=== PATIENT | female | born 1985 | race Caucasian/White ===

== ENCOUNTER 2017-10-13 19:37 | Emergency (ER) | payer MEDICAID ==
[~2017-10-13] VITALS: Ht 175.3 cm; Wt 182.2 kg
[2017-10-13] MEDS ORDERED: KETOROLAC 30MG/ML VIAL IM ONE (22:45)
[2017-10-13 23:55] LABS: CLARITY URINE CLEAR (CLEAR); COLOR URINE DARK YELLOW (YELLOW); KETONES URINE NEGATIVE (NEGATIVE); LEUKOCYTE ESTERASE URINE 1+ (NEGATIVE); NITRITE URINE POSITIVE (NEGATIVE); OCCULT BLOOD URINE 3+ (NEGATIVE); PROTEIN URINE 2+ (NEGATIVE)
[2017-10-14 00:41] VITALS: BP 160/96
== END 2017-10-14 00:58 | disposition home or self-care (01) ==
LOC: ER 19:37
DX: N39.0 Urinary tract infection, site not specified (principal); E11.9 Type 2 diabetes mellitus without complications; I10 Essential (primary) hypertension
CPT/HCPCS: 81003; 96372; 99283; J1885; Z7610

== ENCOUNTER 2021-01-10 16:33 | Emergency (ER) | payer MEDICAID ==
[~2021-01-10] VITALS: Ht 175.3 cm; Wt 170.0 kg
[2021-01-11] MEDS ORDERED: KETOROLAC 30MG/ML VIAL IV STA (00:10)
[2021-01-11] MEDS ORDERED: ONDANSETRON HCL 4MG/2ML INJ IV STA (00:10)
[2021-01-11] MEDS ORDERED: SODIUM CHLORIDE 0.9% 1,000 ML IV ONE (00:15)
[2021-01-11 00:41] LABS: CLARITY URINE CLOUDY (CLEAR); COLOR URINE YELLOW (YELLOW); KETONES URINE 1+ (NEGATIVE); LEUKOCYTE ESTERASE URINE 1+ (NEGATIVE); NITRITE URINE POSITIVE (NEGATIVE); OCCULT BLOOD URINE NEGATIVE (NEGATIVE); PH URINE 5.5 (4.5-8.0); PROTEIN URINE TRACE (NEGATIVE); SPECIFIC GRAVITY URINE 1.019 (1.005-1.030); UROBILINOGEN URINE 0.2 E.U./dL (0.2-1.0)
[2021-01-11 00:41] LABS: BASOPHILS % 0.5 % (0.0-2.0); EOSINOPHILS % 0.3 % (0.0-5.0); HEMATOCRIT. 44.2 % (36.0-48.0); HEMOGLOBIN. 14.9 g/dL (12.0-16.0); MEAN CORPUSCULAR HEMOGLOBIN 29.4 pg (28.0-32.0); MEAN CORPUSCULAR VOLUME 87.3 fL (81.0-99.0); MEAN PLATELET VOLUME 10.5 fl (7.4-10.4); NEUTROPHILS % 75.2 % (40.0-76.0); PLATELET 206 x1000/uL (130-400); RED BLOOD CELL COUNT 5.06 mill/uL (4.2-5.4); RED CELL DISTRIBUTION WIDTH 13.2 % (11.6-14.6)
[2021-01-11 00:43] LABS: CHLORIDE 100 mEq/L (98-107)
[2021-01-11] MEDS ORDERED: CEFTRIAXONE 1 G PREMIX 50 ML IV ONE (01:00)
[2021-01-11] MEDS ORDERED: IBUP-2029 MT (01:32)
[2021-01-11] MEDS ORDERED: CEPH500C2 MT ×2 (01:32)
[2021-01-11 02:44] VITALS: BP 142/91
[2021-01-27] MEDS ORDERED: LISI30TA36 MT (11:26)
[2021-01-27] MEDS ORDERED: HYDR25TA MT (11:26)
[2021-01-27] MEDS ORDERED: GLIP5TAB12 MT (11:26)
[2021-01-27] MEDS ORDERED: METF-414 MT (11:26)
== END 2021-01-11 02:45 | disposition home or self-care (01) ==
LOC: ER 16:33
DX: N10 Acute pyelonephritis (principal); E11.65 Type 2 diabetes mellitus with hyperglycemia; N39.0 Urinary tract infection, site not specified; I10 Essential (primary) hypertension; Z98.890 Other specified postprocedural states
CPT/HCPCS: 36415; 80053; 81003; 83690; 85025; 96361; 96365; 96375; 99284; J0696; J1885; J2405; J7030

== ENCOUNTER 2021-01-22 20:01 | Emergency (ER) | payer MEDICAID ==
[~2021-01-22] VITALS: Ht 175.3 cm; Wt 166.0 kg
[~2021-01-22 20:01] MED LIST: CEPH500C2 MT; IBUP-2029 MT
[2021-01-22 20:11] VITALS: BP 171/100
== END 2021-01-22 23:37 | disposition left against medical advice (07) ==
LOC: ER 20:01
DX: Z53.21 Procedure and treatment not carried out due to patient leaving prior to being seen by health care provider (principal)

== ENCOUNTER 2024-10-18 12:40 | Emergency (ER) | payer MEDICAID ==
[~2024-10-18] VITALS: Ht 175.3 cm; Wt 103.0 kg
[~2024-10-18 12:40] MED LIST changes: -CEPH500C2 MT; +GLIP5TAB22 MT; +HYDR25TA MT; +LISI30TA36 MT; +METF-414 MT
[2024-10-18 13:00] VITALS: O2SAT 100
[2024-10-18] MEDS: ONDANSETRON 4MG ODT PO ONE (13:40)
[2024-10-18 13:44] LABS: CLARITY URINE CLEAR (CLEAR); COLOR URINE YELLOW (YELLOW); GLUCOSE URINE NEGATIVE (NEGATIVE); KETONES URINE NEGATIVE (NEGATIVE); LEUKOCYTE ESTERASE URINE NEGATIVE (NEGATIVE); NITRITE URINE NEGATIVE (NEGATIVE); OCCULT BLOOD URINE NEGATIVE (NEGATIVE); PH URINE 6.0 (4.5-8.0); PROTEIN URINE NEGATIVE (NEGATIVE); SPECIFIC GRAVITY URINE 1.015 (1.005-1.030); UROBILINOGEN URINE 0.2 E.U./dL (0.2-1.0)
[2024-10-18 14:34] LABS: BASOPHILS % 0.3 % (0.0-2.0); EOSINOPHILS % 0.4 % (0.0-5.0); HEMATOCRIT. 43.8 % (36.0-48.0); HEMOGLOBIN. 14.9 g/dL (12.0-16.0); LYMPHOCYTES % 17.9 % (20.0-50.0); MEAN PLATELET VOLUME 10.4 fl (7.4-10.4); MONOCYTES % 5.1 % (2.0-8.0); NEUTROPHILS % 76.3 % (40.0-76.0); PLATELET 204 x1000/uL (130-400); RED BLOOD CELL COUNT 5.03 mill/uL (4.2-5.4); RED CELL DISTRIBUTION WIDTH 13.7 % (11.6-14.6)
[2024-10-18 14:47] LABS: CREATININE 0.6 mg/dL (0.6-1.0); UREA NITROGEN BLOOD 8 mg/dL (9-23)
[2024-10-18 14:49] LABS: ASPARTATE AMINOTRANSFERASE 18 IU/L (<34); BILIRUBIN DIRECT 0.5 mg/dL (<=3.0); BILIRUBIN TOTAL 1.9 mg/dL (0.1-1.0); PROTEIN TOTAL 7.7 g/dL (6.0-8.3)
[2024-10-18] MEDS ORDERED: ONDA-239 PO (16:15)
[2024-10-18 16:18] VITALS: BP 140/97; PULSE 90; RESP 18; TEMP 36.9; O2SAT 100
== END 2024-10-18 16:28 | disposition home or self-care (01) ==
LOC: ER 12:40
DX: R11.2 Nausea with vomiting, unspecified (principal); R16.0 Hepatomegaly, not elsewhere classified; E11.9 Type 2 diabetes mellitus without complications; I10 Essential (primary) hypertension; Z79.84 Long term (current) use of oral hypoglycemic drugs; Z79.899 Other long term (current) drug therapy
CPT/HCPCS: 99284; 74176; 80076; 80048; 81003; 81025; 83690; 85025; 36415; Q0162